=== PATIENT | male | born 1995 | race Caucasian/White ===

== ENCOUNTER 2024-10-23 12:52 | Emergency (ER) | payer OTHER ==
[2024-10-23] MEDS: Lidocaine 1% with EPINEPHrine 1:100,000 20 ML MDV INJECT ONE (13:30)
[2024-10-23] MEDS: Bacitracin Oint 1 GM U/D Packet TOP ONE (14:13)
== END 2024-10-23 14:13 | disposition home or self-care (01) ==
LOC: JP.ED 12:52
DX: S01.03XA Puncture wound without foreign body of scalp, initial encounter (principal); W45.8XXA Other foreign body or object entering through skin, initial encounter
CPT/HCPCS: 99283; J2004